=== PATIENT | female | born 1990 | race Caucasian/White ===

== ENCOUNTER 2019-09-29 08:20 | Outpatient (CLI) | payer OTHER, SELFPAY ==
--- NOTE | 2019-09-29 | US_ITS ---
WS: [id number] OB ultrasound, 09/29/2019 Clinical Data: SUPERVISION 1ST Comparison: None. Findings: There is a single intrauterine in the breech presentation. The placenta is Anterior and gra de 0. There is a normal amount of amnionic fluid. The heart rate is 161 beats per minute. Measurements of growth and development: BPD: 4.6 cm HC: 17.3 cm AC: 14.6 cm FL: 3.2 cm The estimated weight is 317 or approximately 11 ounces The estimated gestational age is 19w6d w ith an ABIGAIL of approximately 02/17/2020. anatomy show a normal stomach, kidneys, bladder, cord insertion, three-vessel cord, entire spin e, four-chamber heart, lateral cerebral ventricles, cerebellum and cisterna magna. US/US OB >= 14 weeks fetus [id number] Impression: 1. Single intrauterine in breech presentation. 2. Estimated gestational age 19w6d with an ABIGAIL of 02/17/2020. 3. heart rate 161 beats per minute.
== END 2019-09-29 08:21 | disposition home or self-care (01) ==
LOC: RADOUTREAD 13:03
PROVIDERS: Family Provider Family Medicine; Visit Provider Family Medicine
DX: Z01.89 Encounter for other specified special examinations (principal)

== ENCOUNTER 2020-02-09 04:00 | Inpatient (IN) | payer MEDICAID, SELFPAY ==
--- NOTE | 2020-01-25 09:16 | ANES.PREANE2 ---
Pre-Anesthetic Assessment Pre-Anesthetic Assessment: Preop Diagnosis: IUP Proposed Procedure: Operation Date: 02/09/20 07:00 Proposed Procedures p Section With Tubal(Not Applicable) - Fausto Martin MD Familial anesthetic complications: None Social: Social History: No alcohol and No tobacco Exam: Pre-Anes Outpt Exam: alert, oriented x 3, clear to auscultation bilaterally and regular rate & rhythm Airway: Cervical ROM: WNL MP: 2 Dentition: Full Anesthetic Plan: ASA status: 2 Anesthesia: Regional (specify below) (spinal ) Risk of > 500 ml blood loss (7ml/kg in children): No Data Anesthesia Cardiac Studies: No Data to Display
[2020-02-09] VITALS (26 sets, daily range): BP systolic 107–144; BP diastolic 62–87; PULSE 52–100; RESP 14–20; TEMP 36.1–37; O2SAT 98–100; BMI 35.7
[2020-02-09 05:57] LABS: Basophils % 0.1 %; Eosinophils # 0.1 10^3/uL (0.0-0.8); Eosinophils % 0.9 %; Hematocrit 36.6 % (37.0-47.0); Lymphocytes # 1.9 10^3/uL (0.8-4.8); Lymphocytes % 26.5 %; Mean Corpuscular HGB Conc 32.8 g/dL (30.0-36.0); Mean Corpuscular Hemoglobin 30.2 pg (28.0-34.0); Mean Corpuscular Volume 92.2 fL (81-99); Mean Platelet Volume 11.4 fL (7.4-10.4); Monocytes # 0.5 10^3/uL (0.2-0.9); Monocytes % 6.8 %; Neutrophils # 4.57 10^3/uL (1.8-7.7); Neutrophils % 65.3 %; Nucleated Red Blood Cells % 0 %; Platelet Count 177 10^3/cmm (130-400); Red Blood Count 3.97 10^6/uL (4.1-5.3); Red Cell Distribution Width 13.5 % (12.1-15.1)
--- NOTE | 2020-02-09 06:48 | P.HP_ITS ---
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 She has had 2 previous unremarkable sections. Her has been unremarkable. There have been no concerns. Her due date is based on her last menstrual period as well as the first trimester ultrasound. Her labs are within normal limits. See faxed labs for details. She was GBS negative. Her infectious disease panel was within normal limits. Her drug screen was negative. Her glucose screen was within normal limits. Present Details : 4 Para: 2 Labs Rubella: Immune RPR: Negative GBS: Negative Review of Systems General: Reports: 10 or more systems reviewed and unremarkable except in HPI and below Const: Reports: fatigue; Denies: fever(s) Eyes: Denies: change in vision Card: Denies: chest pain Musc: Reports: back pain Norris/Lymph: Denies: easy bruising Medications/Allergies Home Medications Medication Instructions Recorded Confirmed Last Taken Type 02/09/20 Unknown History Allergies Allergy/AdvReac Type Severity Reaction Status Date / Time No Known Allergies Allergy Verified 02/09/20 05:31 Vitals/I&O/Wt Weight last 48 hrs Weight 249 lb Physical Exam Const: COMMON NORMALS: patient oriented x3 and alert HENMT: COMMON NORMALS: moist oral mucous membranes HEAD & SCALP: normal to inspection Chest: COMMONS NORMALS: normal inspection of the chest Resp: COMMON NORMALS: clear to auscultation bilaterally AUSCULTATION: clear to auscultation bilaterally Cardio: COMMON NORMALS: regular rate and regular rhythm RATE: regular rate RHYTHM: regular rhythm GI: INSPECTION: Yes normal to inspection and Yes other (Gravid) Extremity: COMMON NORMALS: normal to inspection GENERAL: Yes edema (Trace) Neuro: COMMON NORMALS: patient oriented x3, moves all extremities and no sensory deficits noted SENSORIUM/ORIENTATION: Yes alert Psych: COMMON NORMALS: mental status grossly normal Skin: COMMON NORMALS: no rashes or lesions noted GENERAL SKIN EXAM: no rashes or lesions noted Data : 02/09/20 05:40 A&P Assessment and plan (1) 39 weeks gestation of : I anticipate routine c section and post c section care. If she does well, she may be able to go home tomorrow. Status: Acute (2) Previous section: Status: Acute (3) Sterilization: Status: Acute Attestations Medical Necessity Statement*: I anticipate routine and post C- section care. 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
--- NOTE | 2020-02-09 06:52 | P.ANESUD_ITS ---
Pre-Anesthetic Update Pre-Anesthetic Assessment: Date of Surgery/Procedure: 02/09/20 Preop Afshan gnosis: IUP Proposed Procedure: Operation Date: 02/09/20 07:00 Proposed Procedures p Section With Tubal(Not Applicable) - Fausto Martin MD Any changes to Pre-Anesthetic Assessment?: No Labs Last 48hrs: Laboratory Results - last 48 hr 02/09/20 05:40 WBC 7.0 RBC 3.97 L Hgb 12.0 Hct 36.6 L MCV 92.2 MCH 30.2 MCHC 32.8 RDW 13.5 Plt Count 177 MPV 11.4 H Neut % (Auto) 65.3 Lymph % (Auto) 26.5 [place] % (Auto) 6.8 Eos % (Auto) 0.9 Baso % (Auto) 0.1 Neut # (Auto) 4.57 Lymph # (Auto) 1.9 [place] # (Auto) 0.5 Eos # (Auto) 0.1 Baso # (Auto) 0.0 Nucleated RBC % (a uto) 0 Nucleated RBCs # 0.0 Vitals: Pulse Rhythm 02/09/20 05:52 Pulse Strength 3+ Normal 02/09/20 05:52 Respiratory Effort Non-Labored 02/09/20 05:52 Respiratory Depth Normal 02/09/20 05:52 Respiratory Patter n 02/09/20 05:52 Oxygen Delivery Me thod 02/09/20 05:52 Exam: Pre-Anes Outpt Exam: alert, oriented x 3, clear to auscultation bila terally and regular rate & rhythm Cardiac Studies: No Data to Display
[2020-02-09] MEDS: lactated ringers 1,000 ML 999 ML IV (07:02)
--- NOTE | 2020-02-09 08:49 | ANE.PACU2 ---
Inpatient post-anesthesia follow up: Airway intact: Yes Vital signs: Temperature Pulse Rate Respiratory Rate Blood Pressure Pulse Oximetry Oxygen Delivery Me thod Room Air Oxygen Flow Rate Fraction of Inspir ed Oxygen Hydration adequate: Yes Nausea and vomiting: No Pain level: 1 Mental status: Baseline
--- NOTE | 2020-02-09 08:50 | PM.OP ---
Operative Report Date of procedure: February 09, 2020 Pre-op Diagnosis: IUP, previous section, desires sterilization, 39 weeks estimated gestational age Post-op diagnosis: same Procedure Done: 1. Low transverse section 2. Intraoperative bilateral tubal ligation using a modified [place] technique Specimens removed/disposition: 1. Male with a weight of 7 pounds 10 ounces and Apgars of 8 and 9. 2. Bilateral fallopian tube segments with the right segment being tagged. 3. Placenta with a three-vessel cord delivered intact Pathology: other (Bilateral fallopian tube segments) Surgeon: Fausto Martin Anesthesia: Epidural (Spinal) Estimated blood loss (mL): 1,200 Complications: None Condition: stable Disposition: floor (OB) Brief History: See history and physical Procedure: The patient was brought back to the operating room where she was prepped and draped in usual sterile fashion. Anesthesia was found to be adequate. A lower transverse skin incision was then made with a #10 blade. I then dissected down to the underlying subcutaneous tissue until arriving at the prerectal fascia. The fascia was then nicked with the scalpel bilaterally. The fascial incisions were then carried laterally with Wood scissors. Attention was then turned to the superior aspect of the incision which was grasped with kochers and tented up away from the underlying rectus abdominis muscles. The muscles were then dissected away from the fascia manually, and later with Wood scissors. Attention was then turned to the inferior aspect of the incision, and the fascia was dissected away from the underlying muscle in similar fashion. The rectus abdominis muscles were then spread manually. The peritoneum was entered manually. The patient was noted to have uterine adhesions. I elected to take down the adhesions some of the adhesions since we were going to be doing a tubal ligation after the delivery of the infant. I used the Bovie to reduce adhesions across the anterior and left side of the uterus. Excellent visualization of the uterus was noted. A lower transverse uterine incision was then made with a #10 blade. Upon arriving at the intrauterine cavity, the uterine incision was then extended manually. The was noted to be in vertex position. The baby was delivered without difficulty. After delivery of the head, the mouth and nose were suctioned at the site of the incision. There was no meconium. There was no nuchal cord. The remainder of the body was then delivered and placed on the abdomen. The cord was cut and clamped. The baby was then handed to the waiting nurse. The placenta was removed intact. The uterus was externalized. The intrauterine cavity was cleansed of any remaining debris. The uterine incision was reapproximated in 2 layers. The first layer was performed with 0 Vicryl in a running locked stitch. The second layer was an imbricating stitch also using 0 Vicryl. Attention was then turned to the right fallopian tube which was ligated cut and cauterized with 0 chromic in a modified Ene fashion. Attention was then turned to the left fallopian tube which was also ligated cut and cauterized in similar fashion. Large varicosities were noted in the knees mesosalpinx bilaterally. Did not interfere with the ligation. Attention was then turned back to the uterine incision. On the right side of the uterus just superior to the angle of the incision, there was some continued bleediing that was result of reducing the adhesions. After 3 [id number] stitches with 0 Vicryl and pressure, excellent hemostasis was noted. The uterus was replaced into the abdomen. The peritoneum was then irrigated with warm saline. I reexamined the uterine incision and found it to be hemostatic. The rectus abdominis muscles were then reapproximated using 0 Vicryl in a running stitch. The fascia was then reapproximated using 0 Vicryl in running stitch. The subcutaneous tissue was reapproximated using 0 Vicryl in a running stitch. The skin was reapproximated using molina. A sterile dressing was placed. All counts were correct x2. Both the mother and baby were in stable condition.
[2020-02-09] MEDS: dextrose 5%-lactated ringers 1,000 ML 125 ML IV (10:51)
--- NOTE | 2020-02-09 18:05 | PC.NURSE ---
Patient ambulated 2 times in hallway, denying any dizziness, weakness or lightheadedness.
[2020-02-09] MEDS: docusate sodium 100 mg Capsule PO (18:20)
[2020-02-09] MEDS: ketorolac 30 mg/mL INJ IVP (20:04)
[2020-02-10 01:16] LABS: Hematocrit 32.2 % (37.0-47.0); Hemoglobin 10.5 g/dL (11.5-15.3); Mean Corpuscular HGB Conc 32.6 g/dL (30.0-36.0); Mean Corpuscular Hemoglobin 31.2 pg (28.0-34.0); Mean Corpuscular Volume 95.5 fL (81-99); Platelet Count 172 10^3/cmm (130-400); Red Blood Count 3.37 10^6/uL (4.1-5.3); Red Cell Distribution Width 13.9 % (12.1-15.1); White Blood Count 10.1 10^3/uL (4.0-10.0)
[2020-02-10] MEDS: ketorolac 30 mg/mL INJ IVP (04:02)
[2020-02-10 07:00] VITALS: BP 129/60; PULSE 69; RESP 18; TEMP 36.6
[2020-02-10] MEDS: docusate sodium 100 mg Capsule PO ×2 (09:09→17:25)
[2020-02-10] MEDS: prenatal vitamin Capsule 1 CAP PO (09:10)
--- NOTE | 2020-02-10 10:33 | PM.DCS ---
Discharge Providers Date of Admission: 02/09/20 04:00 Date of Discharge: February 10, 2020 Attending Provider at Admission: Fausto Martin MD Attending Provider at Discharge: Fausto Martin MD Primary Care Provider: Fausto Martin MD Diagnoses at Discharge Discharge Diagnosis (1) 39 weeks gestation of : Status: Acute (2) Previous section: Status: Acute (3) Sterilization: Status: Acute Reason for Visit Reason for Visit: Hospital Course Hospital Course: This is a patient who was admitted for scheduled repeat section along with desired bilateral tubal ligation. Her surgery was performed by Dr. Martin and she did well postoperatively. She was ambulating, tolerating a regular diet, passing flatus and requesting discharge home. Physical Exam Const: COMMON NORMALS: no acute distress GENERAL APPEARANCE: cooperative and comfortable HENMT: COMMON NORMALS: normocephalic and atraumatic HEAD & SCALP: normocephalic and atraumatic Eye: COMMON NORMALS: Equal, round and reactive pupils present and EOMs intact bilaterally PUPIL: Yes Equal, round and reactive pupils present Chest: COMMONS NORMALS: normal inspection of the chest Resp: COMMON NORMALS: normal respiratory effort and clear to auscultation bilaterally AUSCULTATION: clear to auscultation bilaterally Cardio: COMMON NORMALS: regular rate and regular rhythm RATE: regular rate RHYTHM: regular rhythm GI: COMMON NORMALS: Soft to palpation INSPECTION: Yes normal to inspection (Incision clean dry and intact) PALPATION: Yes Soft to palpation and Yes Tenderness to palpation present (GI) (Mild appropriate postoperative) Extremity: GENERAL: No calf tenderness and Yes edema Urinary Catheter Management^: [place]: Cath Placed During This Visit: yes, but has since been removed by the nurse Reason for Continuing Indwelling Catheter: Decision to DC Catheter Urinary Catheter Date of Insertion: 02/09/20 Urinary Catheter Time of Insertion: 07:15 Date Urinary Catheter Removed: 02/09/20 Time Urinary Catheter Discontinued: 18:06 Discharge Data Data Completed and Pending: Pending at discharge Category Date Time Status Pathology: Surgic al [PTH] Routine Pth 02/09/20 08:18 Received Labs from last 24 hours 02/09/20 02/09/20 05:40 00:05 WBC 10.1 H RBC 3.37 L Hgb 12.0 10.5 L Hct 36.6 L 32.2 L MCV 92.2 95.5 MCH 30.2 31.2 MCHC 32.8 32.6 RDW 13.9 Plt Count 172 MPV 12.0 H Vitals: Last Vital Signs Temp 97.9 F 02/10/20 07:00 Pulse 69 02/10/20 07:00 Resp 18 02/10/20 07:00 BP 129/60 02/10/20 07:00 Pulse Ox 98 02/09/20 23:30 Discharge Plan Discharge Patient Disposition: Home Condition: Stable Prescriptions: New ibuprofen 800 mg Tablet 800 mg PO TID PRN (Reason: Abdominal Discomfort) Qty: 30 RF: 0 hydrocodone-acetaminophen 5-325 mg Tablet 1 - 2 tab PO Q6H PRN (Reason: Moderate To Severe Pain) Qty: 20 RF: 0 docusate sodium 100 mg Capsule 100 mg PO BID Qty: 60 RF: 0 Continued 1 tab PO DAILY RF: 0 Discharge Orders: Discharge Order (Routine); Ordered 02/10/20 Ordered By: Silva Gordon Referrals: Silva Gordon MD [Physician] - 02/14/20 2:45 pm (appointment for staple removal) Discharge Diet: Usual diet Discharge Activity: Limit activity as instructed Patient Instructions: Hydrocodone/Acetaminophen (By mouth), Ibuprofen (By mouth), Laxative, Stool Softeners (By mouth), Your Baby (GEN), Expression, Collection and Storage of Breastmilk (DC), How to Hold and Breastfeed Your Baby (DC), and Nipple Soreness (DC), How to Increase Your Milk Supply (DC), How to Tell if Your Baby is Getting Enough Breast Milk (DC), and Your Diet (DC), OB - Veronica/Evan, OB Discharge Report, OB Food/Drug Interaction Guide, OB Care at Home, OB Home Care Discharge Date/Time: 02/10/20 19:19 Discharge Attestations Time Spent in Discharge Care*: less than 30 min Quality Metrics Clinical Quality Measures During this hospital stay, did patient experience: None Coding Level of Care Code Acute Pilates Coordinator for Chg Fwd Exam Comprehensive Diagnoses 39 weeks gestation of Z3A.39 Previous section Z98.891 Sterilization Z30.2
[2020-02-10 10:57] VITALS: BP 111/71; PULSE 86; RESP 16; TEMP 36.8; O2SAT 96
[2020-02-10 16:13] VITALS: BP 121/79; PULSE 84; RESP 18; TEMP 36.6
[2020-02-10 18:57] VITALS: BP 112/72; PULSE 80; RESP 16; TEMP 36.9; O2SAT 97
== END 2020-02-10 19:19 | disposition home or self-care (01) | DRG 785 ==
PROVIDERS: Admitting Provider Family Medicine; PCP Family Medicine; Visit Provider Family Medicine
PROC: 10D00Z1 Extraction of Products of Conception, Low, Open Approach (ICD-10-PCS; CPT 59514; principal; 2020-02-09 07:00)
DX: O65.5 Obstructed labor due to abnormality of maternal pelvic organs (principal); O34.211 Maternal care for low transverse scar from previous cesarean delivery; N85.8 Other specified noninflammatory disorders of uterus; Z3A.39 39 weeks gestation of pregnancy; Z37.0 Single live birth; Z30.2 Encounter for sterilization
CPT/HCPCS: 12345; 36415; 51702; 58611; 59025; 59409; 85025; 85027; 88302; 96375; 98960; J0690; J1885; J2274; J2370; J3490

== ENCOUNTER 2020-02-23 19:31 | Emergency (ER) | payer MEDICAID, SELFPAY ==
[2020-02-23 19:40] VITALS: BP 130/88; PULSE 68; RESP 18; TEMP 36.7; O2SAT 98; BMI 34.4
--- NOTE | 2020-02-23 19:43 | US_ITS ---
WS: [id number] TRANSABDOMINAL PELVIC ULTRASOUND HISTORY: post bleeding, 2 weeks . COMPARISON: None available. Uterus: 14.7 cm x 8.6 cm x 6.0 cm. Uterus is enlarged and mildly heterogeneous. Incomplete evaluation of the uterus due to transabdominal imaging. Endometrium: Increased fluidlike products within the endometrial canal causing distention and enlarge ment 2.2 cm. Incomplete and limited evaluation as this is only a transabdominal examination. Cervix i s closed. Neither ovary is identified. No adnexal mass. No free fluid in the cul-de-sac. US/US pelvic complete* [id number] IMPRESSION: 1. Limited evaluation of the endometrium and evaluation for possible retained products of the conception. 2. Endometrial enlargement with mildly complex fluid like products. No retaine d products of the conception are identified on this transabdominal exam. If the re is continued bleeding consider follow-up transvaginal imaging.
[2020-02-23 20:37] LABS: Basophils # 0.1 10^3/uL (0.0-0.1); Basophils % 0.6 %; Eosinophils # 1.2 10^3/uL (0.0-0.8); Eosinophils % 13.8 %; Hematocrit 38.8 % (37.0-47.0); Hemoglobin 12.4 g/dL (11.5-15.3); Lymphocytes # 3.2 10^3/uL (0.8-4.8); Lymphocytes % 35.3 %; Mean Corpuscular Hemoglobin 29.4 pg (28.0-34.0); Mean Corpuscular Volume 91.9 fL (81-99); Mean Platelet Volume 10.3 fL (7.4-10.4); Monocytes # 0.5 10^3/uL (0.2-0.9); Monocytes % 5.5 %; Neutrophils # 3.99 10^3/uL (1.8-7.7); Neutrophils % 44.4 %; Nucleated Red Blood Cells % 0 %; Platelet Count 238 10^3/cmm (130-400); Red Blood Count 4.22 10^6/uL (4.1-5.3); Red Cell Distribution Width 12.6 % (12.1-15.1)
--- NOTE | 2020-02-23 20:40 | W.ED.FEMALGU ---
HPI - Female Genitourinary General: Chief complaint: Vaginal Bleeding Stated complaint: abnormal vaginal bleeding Time Seen by Provider: 02/23/20 20:36 Source: patient Mode of arrival: ambulatory Limitations: no limitations History of Present Illness: HPI Narrative: Vida is a nice 29-year-old female who comes in complaining of vaginal bleeding and cramping. 2 weeks ago the patient had a by Dr. Martin. She is been recovering well but not had any vaginal discharge or bleeding until today. Patient denies any syncope, near syncope, fever, chills or any other vaginal discharge other than the blood from tonight. Patient denies any flank pain or back pain. She does have some mild suprapubic cramping. Patient denies no fevers or chills she denies any urinary symptoms such as dysuria, urinary frequency or urgency. She is tried some Tylenol Motrin for her cramping pain and she states that does help somewhat. Associated symptoms: Deny abdominal pain, headache(s), nausea or syncope Related Data: : 4 Review of Systems Const: Denies: fever(s), chills, body aches, fatigue, malaise or diaphoresis Eyes: Denies: change in vision, blurry vision, photophobia, eye discomfort, eye discharge or eye redness ENMT: Denies: throat pain, odynophagia, hoarseness, swelling of lips/tongue, ear or mastoid pain, ear discharge, change in hearing or nasal discharge Card: Denies: chest pain, palpitations, irregular heart rhythm, edema, lightheadedness, syncope, pre-syncope, dyspnea on exertion or orthopnea Resp: Denies: dyspnea, productive cough, non-productive cough, wheezing, hemoptysis or chest congestion GI: Denies: abdominal pain, nausea, vomiting, hematemesis, coffee ground emesis, heartburn, diarrhea, constipation, GI cramping, hematochezia or melena : Denies: flank pain, dysuria, urinary frequency, urinary urgency or hematuria Musc: Denies: neck pain, back pain, extremity pain, extremity swelling, joint pain, joint swelling, joint redness, joint warmth or joint stiffness Skin/Breast: Denies: rash, pruritus, erythema or skin tenderness Neuro: Denies: headache(s), numbness in extremities, weakness in extremities, sensory changes, lack of coordination, difficulty walking, dizziness, vertigo, confusion, Slurred speech present or seizure-like activity Norris/Lymph: Denies: easy bruising, easy bleeding, petechiae, purpura or enlarged lymph nodes All/Imm: Denies: urticaria, throat swelling, tongue swelling, facial swelling or acute wheezing PFSH ED PFSH: Medical History (Updated 02/23/20 @ 20:52 by Gail Long) No pertinent past medical history Surgical History (Updated 02/23/20 @ 20:42 by Gail Long) Previous section Female Reproductive History: : 4 Physical Exam Const: COMMON NORMALS: no acute distress, patient oriented x3, no limitations, healthy appearing and well nourished GENERAL APPEARANCE: cooperative, well kempt and well developed HENMT: COMMON NORMALS: normocephalic, atraumatic, external ears normal, EAC's normal and Normal external nose present HEAD & SCALP: normal to inspection, normocephalic and atraumatic FACE & SINUS: normal facial exam and face symmetric NOSE: Normal external nose present and Normal nares present EXTERNAL EAR: Yes external ears normal EXTERNAL AUDITORY CANAL: EAC's normal MOUTH: Normal oral and palatal mucosa present, lip normal and tongue normal Eye: COMMON NORMALS: Equal, round and reactive pupils present and conjunctivae normal GENERAL EYE: appearance normal, both eyes and all related structures ALIGNMENT: Yes alignment normal PERIORBITAL: periorbital findings normal EYELID: eyelids normal CONJUNCTIVA: Yes conjunctivae normal SCLERA: sclerae normal PUPIL: Yes Equal, round and reactive pupils present Neck/C-Spine: COMMON NORMALS: full ROM, no lymphadenopathy, supple, no meningeal signs and no JVD GENERAL: Yes normal visual inspection and Yes trachea midline Chest: COMMONS NORMALS: normal inspection of the chest and normal palpation of entire chest wall Resp: COMMON NORMALS: normal respiratory effort, No retractions, No use of accessory muscles and clear to auscultation bilaterally EFFORT & INSPECTION: Yes able to speak in complete sentences and Yes symmetric chest movement AUSCULTATION: clear to auscultation bilaterally, no crackles, no rales, no rhonchi and no wheezes Cardio: COMMON NORMALS: no JVD, regular rate, regular rhythm, S1 normal heart sound present and S2 normal heart sound present RATE: regular rate RHYTHM: regular rhythm HEART SOUNDS: S1 normal heart sound present, S2 normal heart sound present, no click, no gallops, no murmurs, no rubs and abnormal split S2 GI: COMMON NORMALS: Soft to palpation and No hepatosplenomegaly present PALPATION: Yes Soft to palpation, No Tenderness to palpation present (GI), No Guarding due to palpation present (GI), No Rigid due to palpation, Yes No hepatosplenomegaly present, No Hernia present, No Palpable mass present and No Pulsatile mass present : COMMON NORMALS: Yes no CVA tenderness BLADDER/KIDNEY EXAM: Yes no CVA tenderness EXTERNAL FEMALE EXAM: No Hernia present OTHER: Patient refuses pelvic exam Back/Pelvis: COMMON NORMALS: no CVA tenderness, thoracic and lumbar spine normal to inspection, no thoracic nor lumbar tenderness and thoraco-lumbar ROM normal Extremity: COMMON NORMALS: normal to inspection, full ROM, capillary refill normal, no joint enlargement, no clubbing, cyanosis or edema and no calf tenderness Neuro: COMMON NORMALS: patient oriented x3, CN's II-XII intact bilaterally, moves all extremities, no focal motor deficits and no sensory deficits noted MENINGEAL SIGNS: Yes no meningeal signs SPEECH: speech normal Psych: COMMON NORMALS: mental status grossly normal, Normal thought process present, cooperative, normal affect, speech normal and activity/motor behavior normal APPEARANCE: Yes well kempt SPEECH: Yes normal speech THOUGHT PROCESS: Normal thought process present Skin: COMMON NORMALS: no rashes or lesions noted, turgor normal, no jaundice, no petechiae and no mottling GENERAL SKIN EXAM: no rashes or lesions noted and turgor normal Course Vital Signs: Vital signs: Vital Signs Temperature 98.0 F 02/23/20 19:40 Pulse Rate 54 L 02/23/20 20:51 Respiratory Rate 16 02/23/20 20:51 Blood Pressure 120/66 02/23/20 20:51 Pulse Oximetry 98 02/23/20 20:51 MDM - Female MDM Narrative: Medical decision making narrative: Vida is a very nice 29-year-old female comes in complaining of mild bleeding after a 2 weeks ago. The patient has no sign of retained products of conception on her ultrasound. Patient has no sign of lightheadedness, dizziness, or any other sign of orthostasis. Patient is refusing pelvic exam again although I do think there is unlikely to be any infection without a fever or white count she understands that my work-up is limited. I did review the case with Dr. Martin who states the patient can be re-seen in the office tomorrow for recheck. Patient agrees to return if her symptoms change or worsen but at this time she wants to get back to her baby as she states is time for her to breast-feed. I did offer her Cytotec as advised by Dr. Martin but she declines this as well and just wants to write out the discomfort and bleeding. Lab Data: Attestation: I reviewed the patient's lab results. Labs: Lab Results 02/23/20 Range/Units 20:29 WBC 9.0 (4.0-10.0) 10^3/ uL RBC 4.22 (4.1-5.3) 10^6/u L Hgb 12.4 (11.5-15.3) g/dL Hct 38.8 (37.0-47.0) % MCV 91.9 (81-99) fL MCH 29.4 (28.0-34.0) pg MCHC 32.0 (30.0-36.0) g/dL RDW 12.6 (12.1-15.1) % Plt Count 238 (130-400) 10^3/c mm MPV 10.3 (7.4-10.4) fL Neut % (Auto) 44.4 % Lymph % (Auto) 35.3 % Cedar % (Auto) 5.5 % Eos % (Auto) 13.8 % Baso % (Auto) 0.6 % Neut # (Auto) 3.99 (1.8-7.7) 10^3/u L Lymph # (Auto) 3.2 (0.8-4.8) 10^3/u L Cedar # (Auto) 0.5 (0.2-0.9) 10^3/u L Eos # (Auto) 1.2 H (0.0-0.8) 10^3/u L Baso # (Auto) 0.1 (0.0-0.1) 10^3/u L Nucleated RBC % (a uto) 0 % Nucleated RBCs # 0.0 /100WBC Imaging Data: US Pelvis: My impression: Pelvic ultrasound, tech interpretation -blood and clot present in the endometrium. No retained products of conception. No evidence endometrial-itis. No free fluid. Adnexa's tubes and ovaries normal. Discharge Plan Discharge Patient Disposition: Home Clinical Impression: bleeding Qualifiers: hemorrhage type: unspecified Qualified Code(s): O72.1 - Other immediate hemorrhage Condition: Stable Prescriptions: No Action 1 tab PO DAILY RF: 0 ibuprofen 800 mg Tablet 800 mg PO TID PRN (Reason: Abdominal Discomfort) Qty: 30 RF: 0 hydrocodone-acetaminophen 5-325 mg Tablet 1 - 2 tab PO Q6H PRN (Reason: Moderate To Severe Pain) Qty: 20 RF: 0 docusate sodium 100 mg Capsule 100 mg PO BID Qty: 60 RF: 0 Discharge Orders: Discharge Order (Routine); Ordered 02/23/20 Ordered By: Gail Long Referrals: Fausto Martin MD [Primary Care Provider] - 1-3 days (Be certain to call first thing tomorrow for an appointment to be seen by Dr. Martin for recheck.) Discharge Diet: Advance as tolerated Discharge Activity: Increase activity as tolerated Patient Instructions: Bleeding (ED) Activity Restrictions/Additional Instructions: Please return to the ER immediately for any of the signs or symptoms listed on your discharge instruction sheets, worsening/changing of your symptoms, you are not getting better as quickly as expected, or for ANY other cause or concerns. If you develop lightheadedness, weakness, you pass out or nearly pass out or your vaginal bleeding becomes heavier at all please return to the ER immediately for recheck. Be certain to call first thing tomorrow morning for an appointment to be seen by Dr. Martin. You have declined full exam here but if you change your mind or your symptoms change or worsen at all please return to the ER immediately for recheck. Discharge Date/Time: 02/23/20 21:00 Coding Level of Care Code ED Technical Support Representative for Chg Fwd Exam Comprehensive
[2020-02-23 20:51] VITALS: BP 120/66; PULSE 54; RESP 16; O2SAT 98
== END 2020-02-23 21:00 | disposition home or self-care (01) ==
PROVIDERS: Emergency Medicine; Emergency Provider Emergency Medicine; PCP Family Medicine
DX: O72.1 Other immediate postpartum hemorrhage (principal)
CPT/HCPCS: 12345; 76856; 85025; 99282; 99283

== ENCOUNTER 2020-08-08 14:02 | Outpatient (CLI) | payer MEDICAID, SELFPAY | END 2020-08-08 14:03 | disposition home or self-care (01) | LOC: SPT 14:03 | PROVIDERS: PCP Family Medicine; Visit Provider Orthopaedic Surgery | DX: M65.4 Radial styloid tenosynovitis [de Quervain] (principal) | CPT/HCPCS: 97760; L3809 ==

== ENCOUNTER 2022-08-01 07:18 | Outpatient (CLI) | payer MEDICAID, SELFPAY ==
--- NOTE | 2022-08-01 07:31 | MM_ITS ---
WS: [id number] DIAGNOSTIC BILATERAL DIGITAL BREAST TOMOSYNTHESIS MAMMOGRAPHY WITH CAD RIGHT breast ultrasound, limited HISTORY: RIGHT breast pain. COMPARISON: None available. TECHNIQUE: Bilateral craniocaudad, mediolateral oblique, and mediolateral views are submitted with to mosynthesis and SM. Spot compression RIGHT MLO. Computer aided detection utilized. Breast composition: The breasts are heterogeneously dense, which may obscure small masses. Well-circu mscribed 5 mm nodule in the lateral RIGHT breast near 8-9 o'clock. Probably a lymph node. Otherwise n o abnormalities. LEFT breast is negative. RIGHT breast ultrasound, limited. Hypoechoic mass with fatty hilum at 8:00, 4 cm nipple consistent with a lymph node. Corresponds to th e mammographic abnormality. Lymph node measures 6 x 6 x 5 mm. No abnormality in the area of pain. MM/[id number] IMPRESSION: BI-RADS: 2-Benign FOLLOW UP: 1 Year Follow-up
== END 2022-08-01 07:19 | disposition home or self-care (01) ==
PROVIDERS: PCP Family Medicine; Visit Provider Nurse Practitioner Family
DX: N64.4 Mastodynia (principal)
CPT/HCPCS: 76642; 77062; G0279